=== PATIENT | female | born 1950 | race Caucasian/White ===

== ENCOUNTER 2021-10-09 10:52 | Day surgery (SDC) | payer MEDICARE, SELFPAY ==
[2021-10-04 09:47] VITALS: BMI 30.9
[2021-10-09 11:19] VITALS: BP 148/61; PULSE 63; RESP 17; TEMP 36.8; O2SAT 97
--- NOTE | 2021-10-09 12:24 | P.CONAN_ITS ---
FORMERLY [facility] Past Medical History Medical History COVID-19 vaccine series completed Elevated cholesterol History of postoperative nausea and vomiting Functional capacity: independent ambulation Patient : No Family History Family history of problems with anesthesia: No Surgical History Surgical History (Updated 10/04/21 @ 09:46 by Sweetie Lewis RN) H/O colonoscopy Hx of breast biopsy History of Problems with Anesthesia: No Social History Social History Are you a primary personal care attendant to a significant other at home: No Do you presently have visiting nurse or other home services: No Patient Tobacco Use Status: Never used Tobacco Use of substances other than those prescribed or required for medical reasons: No Have you been hit, kicked, punched, or otherwise hurt by someone within the past year? If so, by whom?: No Are you DNR?: Yes Advance Directives: Yes Advance Directives Information Provided: Yes (as above noted-will bring copies DOS) Advance Directives on File: Yes Advance Directives Date on File: 10/09/21 Recently lost weight without trying: No Eating poorly because of decreased appetite: No Nutrition Risks: No Nutritional Risk Poor oral hygiene: No Meds Allergies Allergy/AdvReac Type Severity Reaction Status Date / Time No Known Allergies Allergy Verified 10/04/21 09:39 Active Medications: Current Medications Sodium Biphosphate/Sodium Phosphate (Sodium Phosphate,[place]-Dibasic 133 Ml Enema) 133 ml OR ONCE PRN PRN Reason: Poor Colonoscopy Prep Results Home Medications Medication Instructions Recorded Confirmed Last Taken Type coenzyme Q10 30 mg capsule (CoQ-10) 30 mg PO DAILY 10/04/21 10/04/21 Unknown History multivitamin 1 tab PO DAILY 10/04/21 10/04/21 Unknown History pravastatin 10 mg tablet 10 mg PO BEDTIME 10/04/21 10/04/21 Unknown History vit C 250 mg-vit E 90 mg-zinc 40 1 tab PO BID 10/04/21 10/04/21 Unknown History mg-copper 1 xf-lenips-pmxsds capsule (PreserVision AREDS-2) Exam Exam Date and Time: October 09, 2021 1224 Height,Weight and Vital Signs: Height 5 ft 2.5 in Weight 78.018 kg Last Vital Signs Temp 98.2 F 10/09/21 11:19 Pulse 63 10/09/21 11:19 Resp 17 10/09/21 11:19 BP 148/61 H 10/09/21 11:19 Pulse Ox 97 10/09/21 11:19 Airway Mallampati Class: II TM Dist: >3cm Neck ROM: Full Heart: RRR Lungs: CTA Assessment and Plan Final Anesthetic Review Family History of Problems with Anesthesia: No History of Problems with Anesthesia: No ASA Class: II Final Preanesthetic Review: No Changes in Pt Med Stat, Meds/Allgs Chart Reviewed, Consent Obtained/Reviewed, Anes Risks/Benef Reviewed and DNR Form (If Appl.) Patient Risk: Low Procedure Risk: Low Anesthetic Plan Anesthetic Plan: MAC: Disposition: Standard PACU
[2021-10-09 13:51] VITALS: BP 114/63; PULSE 84; RESP 16; TEMP 36.1; O2SAT 94
--- NOTE | 2021-10-09 13:52 | PM.OP ---
Brief Operative Note Date of Service: 10/09/21 Pre-op diagnosis: Screening Post-op diagnosis: other (Diverticulosis) Procedure: Colonoscopy to the cecum and TI Surgeon: Oniel Sevilla Anesthesia: MAC Was an Shipping Receiving Manager used for this Procedure?: No Estimated blood loss (mL): 0 Pathology: none sent Condition: stable Disposition: PACU
[2021-10-09 14:06] VITALS: BP 135/75; PULSE 78; RESP 16; O2SAT 98
[2021-10-09 14:13] VITALS: PULSE 75; RESP 16; TEMP 36.2; O2SAT 98
--- NOTE | 2021-10-10 01:04 | OP_ITS ---
SURGEON: Oniel Sevilla MD INDICATIONS: The patient presents for followup of colorectal cancer screening and personal history of tubular adenoma of the colon. Full consent was obtained from her for this, including risks of bleeding and perforation. PREOPERATIVE DIAGNOSIS: Colorectal cancer screening and personal history of tubular adenoma of the colon. POSTOPERATIVE DIAGNOSIS: Colorectal cancer screening and personal history of tubular adenoma of the colon, diverticulosis, and internal hemorrhoids. PROCEDURE PERFORMED: Colonoscopy to cecum and terminal ileum. ESTIMATED BLOOD LOSS: COMPLICATIONS: ANESTHESIA: Preop medication used, monitored anesthesia care. ASSISTANTS: SPECIMENS: DESCRIPTION OF PROCEDURE: The patient was placed in the left lateral decubitus position. The digital rectal exam revealed no abnormalities. The Olympus video pediatric colonoscope was entered into the rectum and advanced to the cecum with the assistance of abdominal wall pressure. Once in the cecum, I did identify normal-appearing cecal pouch with appendiceal orifice and a normal-appearing ileocecal valve. The terminal ileum was cannulated and appeared normal. Scope withdrawn back in the colon. The entire cecum and ileocecal valve appeared normal. The scope was slowly withdrawn assessing all mucosal surfaces carefully. Preparation was excellent. I did not visualize any sign of polyps, colitis, or angiodysplasia. There was a mild amount of sigmoid diverticulosis. In the rectum, the scope had difficulty retroflexing, but I was able to achieve a good visualization of the rectum in both the proximal and distal portions in the forward viewing position. Some internal hemorrhoids were noted. The rectal mucosa appeared normal. The scope was straightened and withdrawn to the patient. She tolerated the procedure well and was returned to recovery area in stable condition. IMPRESSION: 1. Diverticulosis. 2. Internal hemorrhoids. PLAN: Given her previous history, I would recommend a followup colonoscopy in 5 years. She will otherwise see me on a p.r.n. basis. MD BHANU Harris/RAINA / [id number]
== END 2021-10-09 15:05 | disposition home or self-care (01) ==
PROVIDERS: PCP Internal Medicine; Visit Provider Internal Medicine
PROC: 0DJD8ZZ Inspection of Lower Intestinal Tract, Via Natural or Artificial Opening Endoscopic (ICD-10-PCS; CPT 45378; principal; 2021-10-09 12:00)
DX: Z12.11 Encounter for screening for malignant neoplasm of colon (principal); Z86.010 Personal history of colon polyps; K57.30 Diverticulosis of large intestine without perforation or abscess without bleeding; K64.8 Other hemorrhoids; E78.5 Hyperlipidemia, unspecified; Z79.899 Other long term (current) drug therapy; Z66 Do not resuscitate
CPT/HCPCS: G0105